=== PATIENT | female | born 1960 | race Caucasian/White ===

== ENCOUNTER → 2018-10-13 | Outpatient (CLI) | payer BC, OTHER ==
[~2018-10-13] VITALS: Ht 160 cm; Wt 83.9 kg
[~2018-10-13] MED LIST: Armour Thyroid PO; CHLORZOXAZONE500 MG PO; ENDOCET 5-3251 EACH PO; GABAPENTIN 100100 MG PO; GABAPENTIN100 MG PO; HYDROCODON-ACE1 EAC7 PO; HYDROCODONE-AP1 EAC6 PO; NORCO 7.5-3251 EACH PO; NORTRIPTYLINE H10 M1 GT; NORTRIPTYLINE H10 M1 PO; PAMELOR10 MG PO; PENICILLIN V P500 MG PO; TRAMADOL 50 MG50 MG PO; VALIUM5 MG PO
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
[2018-10-13 12:53] VITALS: BP 169/97
--- NOTE | 2018-10-13 13:12 | NUR ---
Pain Clinic Assessment: 1. History of Osteoarthritis: CERVICAL B/L THUMBS SPINE History of Rheumatoid Arthritis: NONE 2. Height: 5 ft. 3 in. 160.0 cm. Weight: 185.0 lb. oz. 83.916 kg. Patient's BMI: 32.8 3. Vital Signs: BP: 169/97 Pulse: 66 Resp: 16 Temp: 02 Sat: 100 ECG Mon: 4. Pain Intensity: 3 5. Fall Risk: Dizziness: Y Needs help standing or walking: N Fallen in the last 3 months: Y Fall risk comments: 6. Patient on Blood Thinner: None 7. History of Hypertension: N 8. Opioid Therapy greater than 6 weeks: Y Opiate Contract Signed: 01/19/16 9. Risk Assessment Tool Provided: 1-LOW RISK 10. Functional Assessment Tool: 11. Recreational Drug Use: Never Drug Type: Tobacco Use: Never Smoker Tobacco Type: Amount or Packs/day: How Many Years: Alcohol Use: No Frequency: Quant:
== END ==
LOC: PAIN 06:50
DX: G89.29 Other chronic pain (principal); M47.814 Spondylosis without myelopathy or radiculopathy, thoracic region; M54.2 Cervicalgia; Z79.899 Other long term (current) drug therapy; Z79.891 Long term (current) use of opiate analgesic; Z88.1 Allergy status to other antibiotic agents; Z88.7 Allergy status to serum and vaccine

== ENCOUNTER → 2018-10-27 | Outpatient (CLI) | payer BC, OTHER ==
[~2018-10-27] VITALS: Ht 160 cm; Wt 72.6 kg
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
[2018-10-27 14:49] VITALS: BP 171/96
--- NOTE | 2018-10-27 14:59 | NUR ---
Pain Clinic Assessment: 1. History of Osteoarthritis: CERVICAL B/L THUMBS SPINE History of Rheumatoid Arthritis: NONE 2. Height: 5 ft. 3 in. 160.0 cm. Weight: 160.0 lb. oz. 72.576 kg. Patient's BMI: 28.4 3. Vital Signs: BP: 171/96 Pulse: 83 Resp: 20 Temp: 02 Sat: 100 ECG Mon: 4. Pain Intensity: 3 5. Fall Risk: Dizziness: N Needs help standing or walking: N Fallen in the last 3 months: N Fall risk comments: 6. Patient on Blood Thinner: None 7. History of Hypertension: N 8. Opioid Therapy greater than 6 weeks: Y Opiate Contract Signed: 01/19/16 9. Risk Assessment Tool Provided: 1-LOW RISK 10. Functional Assessment Tool: 11. Recreational Drug Use: Never Drug Type: Tobacco Use: Never Smoker Tobacco Type: Amount or Packs/day: How Many Years: Alcohol Use: No Frequency: Quant:
== END ==
LOC: PAIN 06:47
DX: M47.814 Spondylosis without myelopathy or radiculopathy, thoracic region (principal); G89.4 Chronic pain syndrome; M54.12 Radiculopathy, cervical region; M53.1 Cervicobrachial syndrome; M43.22 Fusion of spine, cervical region; F79 Unspecified intellectual disabilities